=== PATIENT | male | born 1955 | race Caucasian/White ===

== ENCOUNTER → 2018-08-06 | Outpatient (CLI) | payer MEDICARE ==
[~2018-08-06] VITALS: Ht 188 cm; Wt 107.0 kg
[~2018-08-06] MED LIST: MULTI VITAMINS1 TAB PO; NO HOME MEDICATIONS
[2018-08-06 11:15] VITALS: BP 146/100; PULSE 52
[2018-08-06 11:45] VITALS: BP 146/100; PULSE 52
[2018-08-06 12:00] VITALS: BP 154/98; PULSE 54
== END ==
LOC: COL.RAD 10:21
DX: M99.73 Connective tissue and disc stenosis of intervertebral foramina of lumbar region (principal); M48.061 Spinal stenosis, lumbar region without neurogenic claudication; M51.16 Intervertebral disc disorders with radiculopathy, lumbar region
CPT/HCPCS: J3301

== ENCOUNTER → 2020-01-04 | Outpatient (CLI) | payer MEDICARE, BC | LOC: MHCPAIN 07:49 | DX: M53.3 Sacrococcygeal disorders, not elsewhere classified (principal); M47.27 Other spondylosis with radiculopathy, lumbosacral region; G89.29 Other chronic pain | CPT/HCPCS: G0463 ==

== ENCOUNTER → 2020-01-05 | Outpatient (CLI) | payer MEDICARE, BC | LOC: MHCPAIN 10:53 | DX: M54.5 Low back pain (principal); M53.3 Sacrococcygeal disorders, not elsewhere classified | CPT/HCPCS: J1100; Q9967 ==

== ENCOUNTER → 2020-01-09 | Outpatient (CLI) | payer MEDICARE | LOC: COL.RAD 08:50 | DX: M48.061 Spinal stenosis, lumbar region without neurogenic claudication (principal); M48.07 Spinal stenosis, lumbosacral region; M79.604 Pain in right leg; M54.5 Low back pain; R20.0 Anesthesia of skin ==

== ENCOUNTER 2021-09-12 06:24 | Day surgery (SDC) | payer MEDICARE ==
[~2021-09-12] VITALS: Ht 188 cm; Wt 103.8 kg
[2021-09-12] MEDS ORDERED: REQUIP2 MG PO (06:35)
[2021-09-12] MEDS ORDERED: CELEXA10 MG PO (06:36)
[2021-09-12] MEDS ORDERED: HYZAAR 50-12.1 UDTAB PO (06:36)
[2021-09-12 07:17] VITALS: BP 126/81; PULSE 48; TEMP 97.7
[2021-09-12 07:55] VITALS: BP 136/84; PULSE 45; TEMP 98.3
--- NOTE | 2021-09-12 07:55 | NUR ---
PATIENT BROUGHT BACK TO ENDO ROOM 1 VIA CART. AMBULATED TO CHAIR WITHOUT DIFFICULTY. PLACED ON MONITORS, VITAL SIGNS STABLE. IV INFUSING WITHOUT DIFFICULTY. JOAQUIN JENSEN AT BEDSIDE FOR REPORT. PATIENT DENIES PAIN OR NAUSEA. REQUESTS JUICE AND SPRITE. TO DRIVE PATIENT HOME. WILL CONTINUE TO MONITOR. 0810- VITAL SIGNS STABLE. AT BEDSIDE. TOLERATING FOOD AND DRINK WITHOUT DIFFICULTY. 0825- DR. MOORE AT BEDSIDE TO EXPLAIN RESULTS. PATIENT STATES HE WOULD LIKE TO GO HOME AT THIS TIME. IV REMOVED. PATIENT TO GET DRESSED AT THIS TIME. 0835- PATIENT BROUGHT DOWN TO [facility] VIA WHEEL CHAIR. PUT INTO WIFES CAR. ALL BELONGINGS IN HAND. ALL SAFETY MAINTAINED.
[2021-09-12 08:10] VITALS: BP 126/85; PULSE 41
[2021-09-12 08:25] VITALS: BP 126/88; PULSE 42
[2021-09-12 10:19] VITALS: BP 120/74; PULSE 45
== END 2021-09-12 08:35 | disposition home or self-care (01) ==
LOC: SDCO 06:24
DX: Z12.11 Encounter for screening for malignant neoplasm of colon (principal); I10 Essential (primary) hypertension; G25.81 Restless legs syndrome; F32.9 Major depressive disorder, single episode, unspecified; Z90.89 Acquired absence of other organs; Z79.899 Other long term (current) drug therapy; Z80.1 Family history of malignant neoplasm of trachea, bronchus and lung
CPT/HCPCS: J7030

== ENCOUNTER → 2022-06-06 | Outpatient (CLI) | payer MEDICARE ==
[~2022-06-06] MED LIST changes: +CELEXA10 MG PO; +HYZAAR 50-12.1 UDTAB PO; +REQUIP2 MG PO
== END ==
LOC: COL.RAD 07:09
DX: M48.061 Spinal stenosis, lumbar region without neurogenic claudication (principal); M43.27 Fusion of spine, lumbosacral region; M62.81 Muscle weakness (generalized)
CPT/HCPCS: A9575

== ENCOUNTER → 2022-06-26 | Outpatient (CLI) | payer MEDICARE | LOC: COL.RAD 12:49 | DX: M50.221 Other cervical disc displacement at C4-C5 level (principal); M48.02 Spinal stenosis, cervical region; M50.321 Other cervical disc degeneration at C4-C5 level ==

== ENCOUNTER → 2022-07-03 | Outpatient (CLI) | payer MEDICARE | LOC: COL.RAD 13:26 | DX: M48.062 Spinal stenosis, lumbar region with neurogenic claudication (principal) ==